=== PATIENT | male | born 1990 | race American Indian/Alaskan Native ===

== ENCOUNTER 2022-01-11 15:01 | Emergency (ER) | payer SELFPAY ==
[2022-01-11 15:58] VITALS: BP 109/65
[2022-01-11] MEDS ORDERED: AZITHROMYCIN 250 MG TAB PO ONE (21:11)
[2022-01-11] MEDS ORDERED: LIDOCAINE-MPF (1%) 10 MG/1 ML VIAL 5 ML INFILTRATI ONE (21:11)
--- NOTE | 2022-01-11 21:56 | Emergency Department Report ---
ED General Adult HPI - General Chief complaint: Urogenital-Male Stated complaint: PAINFUL URINATION AND DISCHARGE Time Seen by Provider: 01/11/22 21:11 Source: patient Mode of arrival: Ambulatory Limitations: No Limitations - History of Present Illness Initial comments: Patient 31-year-old male who presents for dysuria frequency and urgency x3 days. Patient states positive STI contact. Requesting treatment for same. There is no open lesions no sores patient does endorse penile discharge yellow-white color. There is been no fevers no chills no nausea or vomiting. Symptoms are exacerbated by voiding. Symptoms are relieved by nothing tried. - Related Data Previous Rx's Medication Instructions Recorded Last Taken Type Amoxicillin 500 mg PO BID #10 capsule 02/12/18 Unknown Rx Oxymetazoline 0.05% [Afrin] 1 spray NS BID #1 bottle 02/12/18 Unknown Rx Doxycycline Monohydrate 100 mg PO BID 7 Days #14 tab 01/11/22 Unknown Rx Allergies Allergy/AdvReac Type Severity Reaction Status Date / Time No Known Allergies Allergy Verified 01/11/22 15:52 ED Review of Systems ROS: Stated complaint: PAINFUL URINATION AND DISCHARGE Other details as noted in HPI Constitutional: denies: chills, fever Eyes: denies: eye pain, eye discharge, vision change ENT: denies: ear pain, throat pain Respiratory: denies: cough, shortness of breath, wheezing Cardiovascular: denies: chest pain, palpitations Endocrine: no symptoms reported Gastrointestinal: denies: abdominal pain, nausea, diarrhea Genitourinary: urgency, dysuria, frequency, discharge (Normal white). denies: testicular pain, testicular mass Musculoskeletal: denies: back pain, joint swelling, arthralgia Skin: denies: rash, lesions Neurological: denies: headache, weakness, paresthesias, vertigo Psychiatric: as per HPI ED Past Medical Hx - Past Medical History Previous Medical History?: No - Surgical History Past Surgical History?: No - Social History Smoking Status: Former Smoker Substance Use Type: None - Medications Home Medications: Home Medications Medication Instructions Recorded Confirmed Last Taken Type Amoxicillin 500 mg PO BID #10 capsule 02/12/18 Unknown Rx Oxymetazoline 0.05% [Afrin] 1 spray NS BID #1 bottle 02/12/18 Unknown Rx Doxycycline Monohydrate 100 mg PO BID 7 Days #14 tab 01/11/22 Unknown Rx ED Physical Exam - General Limitations: No Limitations General appearance: alert, in no apparent distress - Head Head exam: Present: atraumatic, normocephalic - Eye Eye exam: Present: normal appearance, EOMI Pupils: Present: normal accommodation - ENT ENT exam: Present: mucous membranes moist - Neck Neck exam: Present: normal inspection, full ROM. Absent: tenderness, lymphadenopathy - Respiratory Respiratory exam: Present: normal lung sounds bilaterally. Absent: respiratory distress, wheezes, stridor - Cardiovascular Cardiovascular Exam: Present: regular rate, normal rhythm, normal heart sounds. Absent: systolic murmur, diastolic murmur, rubs, gallop - GI/Abdominal GI/Abdominal exam: Present: soft, normal bowel sounds - Rectal Rectal exam: Present: deferred - exam: Present: other (Referred by patient) - Extremities Exam Extremities exam: Present: normal inspection, full ROM, normal capillary refill. Absent: tenderness - Back Exam Back exam: Present: normal inspection, full ROM. Absent: tenderness, CVA tenderness (R), CVA tenderness (L) - Neurological Exam Neurological exam: Present: alert, oriented X3, CN II-XII intact, normal gait - Expanded Neurological Exam Expanded Patient oriented to: Present: person, place, time Speech: Present: fluid speech Cranial nerves: EOM's Intact: Normal, Tongue Deviation: Normal Motor strength exam: RUE: 5, LUE: 5, RLE: 5, LLE: 5 Best Eye Response ([place]): (4) open spontaneously Best Motor Response ([place]): (6) obeys commands Best Verbal Response ([place]): (5) oriented [place] Total: 15 - Psychiatric Psychiatric exam: Present: normal affect, normal mood - Skin Skin exam: Present: warm, dry, intact, normal color. Absent: rash ED Course Vital Signs 01/11/22 15:53 Temperature 98.4 F Pulse Rate 68 Respiratory 18 Rate Blood Pressure 109/65 O2 Sat by Pulse 99 Oximetry ED Medical Decision Making - Medical Decision Making Is a straightforward STI exposure plan treat prophylactically for STI, patient will follow-up with health department for HIV and HSV screening in 1 to 2 days. Patient verbalized agreement understanding with discharge plan patient DC'd in stable condition at this time. Critical care attestation.: If time is entered above; I have spent that time in minutes in the direct care of this critically ill patient, excluding procedure time. ED Disposition Clinical Impression: Exposure to STD Disposition: 01 HOME / SELF CARE / HOMELESS Is pt being admited?: No Does the pt Need Aspirin: No Condition: Good Instructions: Safe Sex Additional Instructions: Follow-up with health department for HIV and HSV screening. Take medications as prescribed. Prescriptions: Doxycycline Monohydrate 100 mg PO BID 7 Days #14 tab Referrals: [facility] Depart [Outside] - 3-5 Days Forms: Work/School Release Form(ED) Time of Disposition: 22:00
[2022-01-11 21:58] LABS: Color,Urine Straw (Yellow)
[2022-01-11 22:01] LABS: Bacteria,Urine 1+ /HPF (Negative)
[2022-01-11 22:02] LABS: WBC,Urine > 182.0 /HPF (0.0-6.0)
== END 2022-01-11 22:53 | disposition home or self-care (01) ==
LOC: ED 15:01
DX: Z20.2 Contact with and (suspected) exposure to infections with a predominantly sexual mode of transmission (principal); Z87.891 Personal history of nicotine dependence
CPT/HCPCS: 81001; 96372; 99283; J0696; J3490